=== PATIENT | male | born 1950 | race Caucasian/White ===

== ENCOUNTER → 2018-08-21 | Outpatient (CLI) | payer MEDICARE ==
[~2018-08-21] MED LIST: ALBU90OI; BP MED; METO25ER PO; OXYACE5T PO; PROM25 PO
== END | disposition home or self-care (01) ==
LOC: LAB SHORT 15:03 → LAB 15:03
DX: E11.9 Type 2 diabetes mellitus without complications (principal)
CPT/HCPCS: 83036

== ENCOUNTER 2020-05-14 19:52 | Emergency (ER) | payer MEDICARE ==
[~2020-05-14] VITALS: Ht 188 cm; Wt 122.5 kg
[~2020-05-14 19:52] MED LIST changes: -AMLO10 PO; -ASPI81CH PO; -Cardura2 MG PO; -FLUT1DIS2; -HYDCHL25 PO; -LOSA50 PO; -TESTOSTERONE60 GM TD; -TRIA50 PO
[2020-05-14] MEDS ORDERED: TRIA50 PO (20:17)
[2020-05-14] MEDS ORDERED: Cardura2 MG PO (20:17)
[2020-05-14] MEDS ORDERED: AMLO10 PO (20:17)
[2020-05-14] MEDS ORDERED: LOSA50 PO (20:18)
[2020-05-14] MEDS ORDERED: ASPI81CH PO (20:18)
[2020-05-14] MEDS ORDERED: HYDCHL25 PO (20:18)
[2020-05-14] MEDS ORDERED: FLUT1DIS2 (20:19)
[2020-05-14] MEDS ORDERED: TESTOSTERONE60 GM TD (20:19)
[2020-05-14 21:00] LABS: Source, Urine Clean Catch
[2020-05-14 21:02] LABS: Appearance, Urine Clear (Clear); Bilirubin, Urine Neg (Neg); Blood, Urine Neg (Neg); Color, Urine Yellow (P-Yellow); Glucose Qualitative, Urine Neg (Neg); Ketones, Urine Neg (Neg); Leukocyte Esterase, Urine Neg (Neg); Nitrite, Urine Neg (Neg); Protein, Urine Neg (Neg); Urobilinogen, Urine NORM (Normal)
== END 2020-05-14 22:14 | disposition home or self-care (01) ==
LOC: ER 19:52
PROVIDERS: Physician Assistant
DX: I16.0 Hypertensive urgency (principal); N28.9 Disorder of kidney and ureter, unspecified; J45.909 Unspecified asthma, uncomplicated; Z79.82 Long term (current) use of aspirin; Z79.899 Other long term (current) drug therapy
CPT/HCPCS: 36415; 76770; 81003; 84484; 93005; 93010; 96374; 99284-25

== ENCOUNTER → 2020-05-14 | Outpatient (CLI) | payer MEDICARE ==
[~2020-05-14] MED LIST changes: +AMLO10 PO; +ASPI81CH PO; +Cardura2 MG PO; +FLUT1DIS2; +HYDCHL25 PO; +LOSA50 PO; +MIRALAX17 GM PO; +TESTOSTERONE60 GM TD; +TRIA50 PO
[2020-05-14 18:49] LABS: BASOPHILS ABSOLUTE AUTO 0.03 K/mm3 (0.00-0.23); BASOPHILS PERCENT AUTO 1 % (0-2); EOSINOPHILS PERCENT AUTO 2 % (0-6); Hematocrit 40.7 % (37.0-53.0); Hemoglobin 13.8 g/dL (13.5-17.5); IMMATURE GRAN ABSOLUTE AUTO 0.01 K/mm3 (0.00-0.10); IMMATURE GRAN PERCENT AUTO 0 % (0-1); LYMPHOCYTES ABSOLUTE AUTO 2.13 K/mm3 (0.84-5.20); LYMPHOCYTES PERCENT AUTO 36 % (21-46); MONOCYTES PERCENT AUTO 7 % (4-13); Mean Corpuscular HGB 28.1 pg (26.0-34.0); Mean Corpuscular HGB Conc 33.9 g/dL (31.5-36.5); Mean Corpuscular Volume 83 fL (80-100); Mean Platelet Volume 11.2 fL (9.1-12.4); NEUTROPHILS ABSOLUTE AUTO 3.31 K/mm3 (1.96-9.15); NEUTROPHILS PERCENT AUTO 55 % (41-73); Platelet Count 168 K/mm3 (150-400); RDW Standard Deviation 38.9 fL (35.1-46.3); Red Blood Cell Count 4.91 M/mm3 (4.30-5.90); White Blood Cell Count 5.98 K/mm3 (4.00-11.30)
[2020-05-14 19:10] LABS: Albumin/Globulin Ratio 1.1 (0.8-1.8); Bilirubin, Total 0.4 mg/dL (0.1-1.0); Bun/Creatinine Ratio 23.2 (12.0-20.0); Calcium, Blood 9.6 mg/dL (8.5-10.1); Creatinine, Blood 1.42 mg/dL (0.60-1.20); Globulin, Blood 3.6 g/dL (2.2-4.0); Potassium, Blood 3.5 mmol/L (3.5-5.5); Total Protein, Blood 7.6 g/dL (6.4-8.2)
== END | disposition home or self-care (01) ==
LOC: PLD 18:15
PROVIDERS: Nurse Practitioner Family
DX: R53.83 Other fatigue (principal)
CPT/HCPCS: 80053; 85025

== ENCOUNTER 2025-01-09 06:03 | Emergency (ER) | payer MEDICARE ==
[~2025-01-09] VITALS: Ht 188 cm; Wt 130.2 kg
[~2025-01-09 06:03] MED LIST changes: +AMLO10 PO; +ASPI81CH PO; +Cardura2 MG PO; +FLUT1DIS2; +HYDCHL25 PO; +LOSA50 PO; +ONDA4 PO; +TESTOSTERONE60 GM TD; +TRIA50 PO
[2025-01-09] MEDS ORDERED: SPIRONOLACTONE25 MG PO (06:24)
[2025-01-09] MEDS ORDERED: ATORVASTATIN CA20 MG PO (06:25)
[2025-01-09] MEDS ORDERED: METF500 PO (06:26)
[2025-01-09] MEDS ORDERED: CARVEDILOL25 M9 PO (06:27)
[2025-01-09 06:31] LABS: BASOPHILS ABSOLUTE AUTO 0.02 K/mm3 (0.00-0.23); BASOPHILS PERCENT AUTO 0 % (0-2); EOSINOPHILS ABSOLUTE AUTO 0.06 K/mm3 (0.00-0.68); EOSINOPHILS PERCENT AUTO 1 % (0-6); Hematocrit 37.2 % (37.0-53.0); Hemoglobin 12.4 g/dL (13.5-17.5); IMMATURE GRAN ABSOLUTE AUTO 0.02 K/mm3 (0.00-0.10); IMMATURE GRAN PERCENT AUTO 0 % (0-1); LYMPHOCYTES ABSOLUTE AUTO 1.56 K/mm3 (0.84-5.20); LYMPHOCYTES PERCENT AUTO 28 % (21-46); MONOCYTES ABSOLUTE AUTO 0.31 K/mm3 (0.16-1.47); MONOCYTES PERCENT AUTO 6 % (4-13); Mean Corpuscular HGB Conc 33.3 g/dL (31.5-36.5); Mean Corpuscular Volume 87 fL (80-100); NEUTROPHILS ABSOLUTE AUTO 3.57 K/mm3 (1.96-9.15); NEUTROPHILS PERCENT AUTO 64 % (41-73); NRBC ABSOLUTE 0.00 K/mm3 (0.00-0.02); NRBC Auto 0.0 /100 WBC (0.0-0.2); Platelet Count 158 K/mm3 (150-400); RDW Coefficient Variation 14.2 % (11.7-14.2); RDW Standard Deviation 44.5 fL (35.1-46.3)
[2025-01-09 06:49] LABS: Anion Gap 8.0 mmol/L (3-11); Blood Urea Nitrogen 15.0 mg/dL (8-24); CO2, Blood 24.0 mmol/L (21-32); Calcium, Blood 9.0 mg/dL (8.5-10.1); Chloride, Blood 107.0 mmol/L (98-108); Creatinine, Blood 1.21 mg/dL (0.60-1.20); Glucose, Blood 188.0 mg/dL (70-99); Magnesium, Blood 1.7 mg/dL (1.6-2.4); Potassium, Blood 4.1 mmol/L (3.5-5.5); Sodium, Blood 135.0 mmol/L (136-145)
[2025-01-09] MEDS ORDERED: ONDA4 PO (10:18)
[2025-01-09 10:30] VITALS: BP 110/86
== END 2025-01-09 10:35 | disposition home or self-care (01) ==
LOC: ER 06:03
PROVIDERS: Emergency Medicine
DX: R07.89 Other chest pain (principal); I10 Essential (primary) hypertension; J45.909 Unspecified asthma, uncomplicated; E11.9 Type 2 diabetes mellitus without complications; Z79.51 Long term (current) use of inhaled steroids; Z79.82 Long term (current) use of aspirin; Z79.899 Other long term (current) drug therapy
CPT/HCPCS: 71045; 80048; 83735; 84484; 85025; 85379; 93005; 93010; 99285-25